=== PATIENT | female | born 1960 | race Caucasian/White ===

== ENCOUNTER 2019-02-10 04:31 | Emergency (ER) | payer OTHER, SELFPAY ==
[2019-02-10 04:32] VITALS: BP 175/94; PULSE 98; RESP 15; TEMP 36.7; O2SAT 97; BMI 51.1
--- NOTE | 2019-02-10 04:58 | CT_ITS ---
We are attempting to reach an attending provider to discuss findings. An addendum with communication details will be sent when the communication is complete. STUDY: CT ABDOMEN AND PELVIS WITH CONTRAST REASON FOR EXAM: Female, 58 years old. Vaginal bleeding. Blood clots. RADIATION DOSAGE (If Supplied By Facility): CTDIvol = ( 17.07 ) mGy, DLP = ( 1379.28 ) mGycm TECHNIQUE: Transaxial images were obtained from the dome of the diaphragm to the symphysis pubis without oral contrast. 100 IV/Oral Isovue 300 was administered. Sagittal and coronal images were reconstructed. Individualized dose optimization techniques were used for this CT. COMPARISON: None. FINDINGS: Lung bases: Unremarkable. Heart: Mild cardiomegaly. Liver: Mild hepatic steatosis. No focal hepatic lesions. Portal vein patent. Gallbladder/biliary ducts: Unremarkable. Pancreas: Unremarkable. Spleen: Unremarkable. Adrenal glands: Unremarkable. Kidneys/ureters/bladder: Unremarkable. Uterus/adnexa: Markedly heterogeneous appearance of the uterus and right adnexal region. Markedly expanded endometrial canal measuring up to 6.2 cm x 7 cm (axial image 86 series 2). Uterus measures up to 14 cm x 12 cm x 17 cm. Poor delineation of the right adnexa from the uterus. Mild inflammatory changes surround the uterus and right adnexal region. Large bowel/small bowel: Contrast reaches the rectum. Uncomplicated large bowel containing ventral hernia (axial image 85 series 2). No perforation. No obstruction. No pneumatosis. Appendix: No signs of appendicitis. Gastroesophageal junction/stomach: Unremarkable. Retroperitoneum/lymph nodes: No intra-abdominal free air. No ascites. Right pelvic sidewall lymph nodes measuring up to 1.7 cm x 0.8 cm (axial image 99 series 2). Vascular: Unremarkable. Osseous structures: Degenerative changes. No acute process. Subcutaneous/soft tissues: Uncomplicated large bowel containing ventral hernia. Hernia neck measures approximately 4.2 cm. No acute process. 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 Given clinical history active intratumoral bleeding/hemorrhage likely. Alternative consideration for infection less likely. ASSISTANT FRONT DESK MANAGER consultation, HTH and contrast-enhanced pelvic MRI recommended for further assessment. Small right pelvic sidewall lymph nodes Additional nonemergent findings, as above Electronically Signed: Bob Otero DO at 8:22 EDT Tel , Service support ,
--- NOTE | 2019-02-10 04:59 | ED.VISSUMM ---
- ER Visit Summary Date of Service: 02/10/19 Chief Complaint: Vaginal bleeding History of Present Illness: The patient is a 58 F who presents with vaginal bleeding that began this morning approximately 1-1/2 hours prior to arrival. Patient states this began rather suddenly. Patient states it is heavy bleeding with clots. Patient denies any pain. Patient denies any dysuria. Patient denies any nausea or vomiting. Patient states she did have some back pain and she rubbed her back. Patient states this is when she noticed the bleeding starting. states they are getting ready to go on vacation to the [facility] today and wanted to get checked out before they left. Physical Examination: Vital signs are stable. Patient is afebrile. Patient is in no acute distress. Oral mucosa is pink and moist. Neck is supple. Trachea is midline. There is no JVD noted. Heart was regular rate and rhythm. Lungs are clear and equal bilaterally. Abdomen is soft. Bowel sounds are normal. There is a ventral hernia noted. There is no tenderness over this hernia. Cranial nerves II through XII are intact. There are no focal motor or sensory deficits noted. Test Results: CBC was normal. INR is 1.0. Metabolic profile is pending. Urinalysis shows occult blood of 250 with 50-[address] scan of the abdomen pelvis was obtained and is pending. Emergency Department Course and Treatment: Patient was given IV fluids. Patient is resting comfortably on reevaluation. Disposition: Care of the patient was turned over to the oncoming physician pending CT results. Impression: Vaginal bleeding This note was generated with [employer] dictation software. It may contain incorrect words, spelling, and punctuation that were not noted in review of the chart prior to signing ED Disposition - Plan for ED Patient: Referrals: Ignacio Ferraro DO [Primary Care Provider] -
[2019-02-10] MEDS: 0.9% Normal Saline 1,000 ML 1000 ML IV (05:15)
[2019-02-10 05:27] LABS: Absolute Neutrophil Count 2.8 X10^3/uL (2.0-7.7); Basophil# 0.05 X10^3/uL; Eosinophil# 0.19 X10^3/uL; Eosinophils% 3.7 % (0-5); Hematocrit 43.4 % (37-47); Hemoglobin 14.1 g/dL (12.0-15.0); Mean Corp Hgb Conc 32.5 g/dL (32-36); Mean Corpuscular Hgb 29.4 pg (27.0-32.0); Mean Corpuscular Volume 90.6 fL (81-99); Mean Platelet Vol. 10.2 fl (6.2-12.0); Monocyte# 0.34 X10^3/uL; Monocyte% 6.6 % (0-10); NRBC Flagged by Analyzer 0 % (0-5); Neutrophil # 2.75 X10^3/uL (2.7-7.7); Neutrophil % 53.3 % (47-70); Platelet Count 283 K/mm3 (150-450); RBC Distribution Width CV 13.4 % (11.6-14.6); RBC Distribution Width SD 44.6 fl (35.1-43.9); Red Blood Count 4.79 M/mm3 (4.2-5.4); White Blood Count 5.2 K/mm3 (4.4-11.0)
[2019-02-10 05:37] LABS: Internal QC Validated? YES +Cl - CLEAR BKGD; Pregnancy, Serum, hCG Quali. NEGATIVE Negative
[2019-02-10 05:42] LABS: Bacteria 0 SEEN /hpf (None Seen); Mucous, Urine 0 SEEN /hpf (<or=2+); Squamous Epithelial Cells - UA 0 SEEN /hpf (5-10); White Blood Cells 0 SEEN /hpf (0-5)
[2019-02-10 05:43] LABS: Glucose, Dipstick Normal (Normal); Ketone-Dipstick Negative (Negative); Leukocyte Esterase-Dipstick Negative /ul (Negative); Nitrite-Dipstick Negative (Negative); Occult Blood-Urine 250 /ul (Negative); Protein-Dipstick 30 mg/dl (Negative); Urine Bilirubin Dipstick Negative (Negative); Urine Clarity Sl. Cloudy (Clear); Urine Urobilinogen Normal (Normal); Urine pH 6.5 (5.0 - 8.0)
[2019-02-10 05:49] LABS: Color, Urine SEE COMMENT BELOW (Yellow)
[2019-02-10 06:05] LABS: Red Blood Cells-Urine 50-100 SEEN /hpf (0-5)
[2019-02-10 06:46] LABS: Prothrombin Time (Protime)PT. 13.1 SECONDS (11.7-14.9)
[2019-02-10 06:47] LABS: Partial Thromboplast Time 29.5 Seconds (24.1-36.2)
[2019-02-10 07:22] LABS: ALB/GLOB Ratio 0.9 RATIO (0.9-2.4); AST(SGOT) 17 U/L (15-37); Alanine Aminotransfer ALT/SGPT 32 U/L (13-56); Albumin, Serum 3.3 g/dL (3.2-5.0); Alkaline Phosphatase 82 U/L (45-117); Anion Gap 6 (5-15); BUN 17 mg/dL (7-18); BUN/Creat Ratio 21.9 RATIO (10-20); Calcium,Total 8.9 mg/dL (8.5-10.1); Chloride 111 mmol/L (98-107); Creatinine, Serum 0.78 mg/dL (0.55-1.02); EST Glomerular Filtration Rate 81 mL/min (>60); Est Glom Filt Rate - Afr Amer 98 mL/min (>60); Estimated Creatinine Clearance 59.32 ml/min; Globulin 3.6 g/dL (2.2-4.2); Glucose 101 mg/dL (74-106); Potassium 4.2 mmol/L (3.5-5.1); Protein, Total 6.9 g/dL (6.4-8.2); Sodium Level 145 mmol/L (136-145)
--- NOTE | 2019-02-10 09:00 | ED.DEP ---
ED Disposition - Plan for ED Patient: Disposition: Home or Assisted Living Instructions: Cancer of the Uterus Referrals: Ignacio Ferraro DO [Primary Care Provider] - Renato Shirley MD [STAFF PHYSICIAN] - (today at 1400 hours (2 pm) - I would recommend showing up at least 15 minutes prior to your scheduled appointment time.)
[2019-02-10 09:26] VITALS: BP 173/90; PULSE 82; RESP 18; O2SAT 97
== END 2019-02-10 09:27 | disposition home or self-care (01) ==
PROVIDERS: Emergency Medicine; Emergency Provider Emergency Medicine; Family Provider Family Medicine; PCP Family Medicine
DX: C55 Malignant neoplasm of uterus, part unspecified (principal); N93.9 Abnormal uterine and vaginal bleeding, unspecified; E66.9 Obesity, unspecified
CPT/HCPCS: 36415; 74177; 80053; 81001; 84703; 85025; 85610; 85730; 96360; 99283; J7030; Q9967; A4216

== ENCOUNTER → 2019-02-10 | Outpatient (CLI) | payer OTHER, SELFPAY ==
[2019-02-10 04:32] VITALS: BMI 51.1
--- NOTE | 2019-02-10 15:50 | EMB_PTH ---
PATIENT: JULIUS SANTOS LOC: [facility] U#:[id number] AGE/SX: 58/F ROOM: RE02/10/[address]: Dr. Renato Shirley MD : 1960 BED: DIS: 02/10/2019 SPEC #: [id number] RECD: 02/10/19 17:36 STATUS: BORIS REQ #: [id number] ALICIA: 02/10/19 15:[address]: Renato Shirley DEPT: SURGICAL PATHOLOGY RECD BY: Chavo Ramon ENTERED: 02/11/19 14:15 SP TYPE: ENDOM BX/C OTHR DR: Dr. Ignacio Ferraro DO Tissues: Endometrium, NOS Procedures: Surgery Specimen Level IV HEADER OPERATION: EMBX PRE-OP DIAGNOSIS: N95.0 TISSUE SUBMITTED: Endometrium MICROSCOPIC DIAGNOSIS Endometrium, biopsy: Organizing blood clots. AM:sp 02/12/19 COMMENT Endometrium is not represented in the biopsy. Clinical correlation is suggested. MICROSCOPIC DESCRIPTION Slides are reviewed. GROSS DESCRIPTION Received is one container labeled with the patient name and designated EM biopsy. The specimen consists of multiple fragments of hemorrhagic soft tissue mixed with blood clot that in aggregate measure 5 x 3 x 0.3 cm. The entire specimen is submitted in two cassettes. /SJ:sp 02/11/19 TC: 5 [facility]: [id number]
== END | disposition home or self-care (01) ==
LOC: LABSPEC 02-11 08:26
PROVIDERS: Family Provider Family Medicine; PCP Family Medicine; Referring Provider Obstetrics & Gynecology; Visit Provider Obstetrics & Gynecology
DX: N95.0 Postmenopausal bleeding (principal)
CPT/HCPCS: 88305

== ENCOUNTER 2019-02-28 08:28 | Day surgery (SDC) | payer SELFPAY, OTHER ==
[2019-02-26 12:52] LABS: Hematocrit 41.1 % (37-47); Hemoglobin 13.1 g/dL (12.0-15.0); Mean Corp Hgb Conc 31.9 g/dL (32-36); Mean Corpuscular Volume 91.1 fL (81-99); Mean Platelet Vol. 9.9 fl (6.2-12.0); Platelet Count 336 K/mm3 (150-450); RBC Distribution Width CV 13.6 % (11.6-14.6); RBC Distribution Width SD 45.6 fl (35.1-43.9); Red Blood Count 4.51 M/mm3 (4.2-5.4); White Blood Count 6.6 K/mm3 (4.4-11.0)
[2019-02-26 12:59] LABS: Partial Thromboplast Time 27.5 Seconds (24.1-36.2); Prothrombin Time (Protime)PT. 13.3 SECONDS (11.7-14.9)
[2019-02-26 13:14] LABS: ALB/GLOB Ratio 0.8 RATIO (0.9-2.4); AST(SGOT) 13 U/L (15-37); Alanine Aminotransfer ALT/SGPT 23 U/L (13-56); Albumin, Serum 3.2 g/dL (3.2-5.0); Alkaline Phosphatase 65 U/L (45-117); Anion Gap 5 (5-15); BUN 14 mg/dL (7-18); BUN/Creat Ratio 15.4 RATIO (10-20); Calcium,Total 8.5 mg/dL (8.5-10.1); Chloride 109 mmol/L (98-107); Creatinine, Serum 0.91 mg/dL (0.55-1.02); EST Glomerular Filtration Rate 67 mL/min (>60); Est Glom Filt Rate - Afr Amer 81 mL/min (>60); Glucose 89 mg/dL (74-106); Potassium 4.2 mmol/L (3.5-5.1); Protein, Total 7.2 g/dL (6.4-8.2); Sodium Level 140 mmol/L (136-145)
[2019-02-26 13:23] LABS: Hemoglobin A1c 4.9 % (4.2-6.3)
--- NOTE | 2019-02-27 21:29 | HP.PCM_ITS ---
History and Physical Date of Admission: 02/28/19 Surgical History and Physical Piper Tiwari, a 58 year old female 7 0 2 0 7, presents for D and C and hysteroscopy on 02/28/19 at 12:00. -- Enlarged Uterus; Heavy DIRECT SALES CONSULTANT Bleeding -- 58 y.o. G 9 P 7 post-menopausal non-smoker reports a sudden on-set of heavy vaginal bleeding. Adds it continues from light to heavy in spurts. Denies cramping or other concerns at this time. It started sudden morning and has been present. It occurs all the time. It is located in the vagina. Piper characterizes it to be non-radiating. Piper characterizes the quality Heavy bleeding. Severity is moderate and very concerned; Additional comments are: CT scan showed enlarged uterus; u/s in office showed same and unable to determine if fibroids present; EMBx inconclusive. MEDICATIONS HISTORY: Patient is also takin. telmisartan 40 mg tablet, One pill by mouth once a day ALLERGIES: No Known Allergies Infections - Chicken pox, Mumps and Measles Illnesses - no serious past illnesses Accidents - None Hospitalizations - see surgery Review of Systems: GENERAL - Denies fever, or chills SKIN - Denies skin changes EYES - Denies visual changes EARS - Denies difficulty hearing NOSE - Denies nasal congestion or bleeding MOUTH - Denies sore throat or difficulty swallowing NECK - Denies pain or swelling RESPIRATORY - Denies shortness of breath or wheezing CARDIOVASCULAR - Denies palpitations or chest pain GASTROINTESTINAL - Denies nausea, vomiting, diarrhea, constipation GENITOURINARY - Denies dysuria, frequency of urination, incontinence of urine MUSCULOSKELETAL - Denies joint or muscle pain NEUROLOGICAL - Denies localized numbness or weakness PSYCHIATRIC - Denies depression or anxiety ENDOCRINE - Denies heat or cold intolerance, weight loss or gain HEMATO-IMMUNOLOGIC - Denies excessive bleeding with cuts SOCIAL HISTORY: Alcohol Use - None Smoking - Never Diet - no special diet Lifestyle - moderate stress lifestyle and Exercise - active work Seat Belt Use - occasional Employer - [employer]visor [employer] Illicit Drug Use - None Sexual Activity - Spouse-Sig Other Name - Anton Spouse-Sig 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 01/01/1984 2. 01/08/1986 3. 07/25/1989 4. 2001(R) Ankle Surgery PHYSICAL EXAM BP- 170/92 Sitting, Right arm, large cuff Weight- 261.24747 lbs Height- 59 inch BMI:52.83 CONSTITUTIONAL - NAD, well nourished, and well developed and obese SKIN - No rash, lesions, or ulcers HEENT - Normocephalic, PERRLA, EOMI NECK - No nodes, no nuchal rigidity and thyroid normal size and texture LYMPH NODES - Palpation of lymph nodes in neck and groins within normal limits LUNGS - CTA x2 without wheezes, crackles or rales CARDIAC - Regular rate and rhythm without rubs, murmurs, or gallops ABDOMEN - Without hepatosplenomegaly, distention, masses, rebound, or guarding; normal bowel sounds; no hernias and 10 cm umbilical hernia (present for years) EXTREMITIES - No edema or calf tenderness NEUROLOGICAL - Cranial nerves II-XII grossly intact PSYCHIATRIC - A and O to time, place, person, mood and affect External Genital Vagina - non-tender without lesions Urethra/Urethral Meatus - non-tender Bladder - non-tender Vagina - vaginal rahman are pink and moist without loss of rugae and no evidence of atropy Cervix - without cervical motion tenderness and has normal size and features without evident lesions Uterus - enlarged uterus 15 wks and greater and exam compromised by habitus Adnexa - clear without masses or tenderness and exam limited by habitus ASSESSMENT/PLAN: 1. Enlarged Uterus and Postmenopausal Bleeding Since EMBx results inconclusive will need to proceed with D and C and H/S. Discussed RBAs and all questions answered.
[2019-02-28] VITALS (11 sets, daily range): BP systolic 83–130; BP diastolic 46–80; PULSE 57–88; RESP 16; TEMP 36.1–36.3; O2SAT 92–99; BMI 51.7
[2019-02-28] MEDS: Lactated Ringers 1,000 ML 100 ML IV ×2 (08:59→11:03)
--- NOTE | 2019-02-28 10:00 | EMB_PTH ---
PATIENT: JULIUS SANTOS LOC: [facility] [place] U#:[id number] AGE/SX: 58/F ROOM: RE02/28/[address]: Dr. Renato Shirley MD : 1960 BED: DIS: 02/28/2019 SPEC #: [id number] RECD: 02/28/19 12:01 STATUS: BORIS CHANTAL #: [id number] ALICIA: 02/28/19 10:[address]: Renato Shirley DEPT: SURGICAL PATHOLOGY RECD BY: Catalino Salvador ENTERED: 02/28/19 12:37 SP TYPE: ENDOM BX/C RAHUL DR: Dr. Ignacio Ferraro DO Tissues: A - Endometrium, NOS B - Endocervical Procedures: Surgery Specimen Level IV HEADER OPERATION: Hysteroscopy, dilation and curettage PRE-OP DIAGNOSIS: Postmenopausal bleeding TISSUE SUBMITTED: A - Endometrial curettings, B - Endocervical curettings MICROSCOPIC DIAGNOSIS A. Endometrium, curettings: Fragments of endocervix with nabothian cysts. Rare fragments of benign superficial squamous mucosa. Rare strips of benign superficial endometrium. See comment. B. Endocervix, curettings: Fragments of benign endocervix. Scant fragments of benign squamous mucosa. AM:damon 03/03/19 COMMENT A. The specimen probably represents fragments of an endocervical/lower uterine segment polyp. Clinical correlation is suggested. MICROSCOPIC DESCRIPTION Slides are reviewed. GROSS DESCRIPTION A - Received in fixative is one container labeled with the patient's name and designated endometrial curettings. The specimen consists of a fragment of tran-pink polyp measuring 1.5 x 1 x 0.4 cm. Also present in the container are multiple fragments of tran-pink soft tissue mixed with blood clot measuring in aggregate 2 x 0.5 x 0.2 cm. The polyp is bisected. The entire specimen is submitted in one cassette. B - Received in fixative is one container labeled with the patient's name and designated endocervical curettings. The specimen consists of multiple fragments of hemorrhagic mucoid tissue that in aggregate measure 2 x 1.5 x <0.1 cm. The specimen is totally submitted in one cassette. / BROCK:damon 02/28/19 TC:5 CPT: 64271 x2
--- NOTE | 2019-02-28 10:14 | PCM.OPRPT ---
Report of Operation Date of Procedure: 02/28/19 Pre-Operative Diagnosis: Postmenopausal Bleeding Post-Operative Diagnosis: Postmenopausal Bleeding And Large Submucous Fibroids Surgery/Procedure Performed:: Diagnostic Hysteroscopy, Fractional Dilation and Curettage Description of Surgical Findings:: 15 cm endometrial cavity with a large submucous fibroid and some endometrial polyps. Cervix is extremely high in vagina which would make any vaginal procedure technically not feasible. Large 10 cm ventral hernia. Type of Anesthesia:: MAC Anesthesiologist: Al Sandra Specimen's removed: Endometrial and endocervical curettings Estimated Blood Loss (mL): 100 cc Fluids Replaced: Crystalloid Description of Procedure: Surgeon: Renato Shirley MD, FACOG Indications: This is a 58 year old patient who has the above diagnosis. The patient has been counseled regarding the risk and indications of this procedure including the possibility of bleeding, infection, and injury to surrounding structures such as bowel bladder. All questions were answered and we consider the patient well-informed. Procedure: The patient was taken to the operating room where after induction of general anesthesia, she was placed in the dorsolithotomy position and prepped and draped in the usual sterile fashion. After placing a speculum, the anterior cervix was grasped with the tenaculum and dilated to about 4-5 mm. Endocervical curettings were obtained. A 3 mm hysteroscope was placed in the uterus of the above findings were noted. Cervix was dilated to about 7-8 mm and uterus was gently curetted removing as much content as possible. In the course of the procedure approximately 200 cc of saline distending media was used and virtually all of this was recovered. Patient tolerated procedure well was taken to recovery room in satisfactory condition sponge instrument and needle counts were all reportedly correct. Estimated blood loss for the case was 30 cc. Specimens to pathology was endometrial and endocervical curettings Complications: None Grafts/Implants Used: None - Complications None - Admit VTE Documentation VTE Present on Admission: Yes VTE Mechan Device Prophylaxis: SCD's
--- NOTE | 2019-02-28 10:18 | DCINST_ITS ---
Discharge Diet: No Restrictions Discharge Activity: Return to Normal Activity, May Shower, May Take a Tub Bath Call your doctor if you observe: Fever of 101 or Higher, Inability to urinate, Inability to have a bowel movement, Using more than one pad per hour Allergies/Adverse Reactions: Allergies No Known Allergies Allergy (Verified 02/28/19 08:39) Medications to take at Discharge Telmisartan [Micardis] 40 mg PO DAILY 02/27/19 Primary Care Physician: Ignacio Ferraro DO [Primary Care Provider] - Test Results: Test results from this visit will be discussed in further detail at your follow- up appointment, if applicable. Please Follow Up With: Renato Shirley MD When: 2 to 3 weeks
[2019-02-28] MEDS: Lubricating Jelly 60 GM Tube 30 GM TOPICAL (10:50)
== END 2019-02-28 12:50 | disposition home or self-care (01) ==
LOC: SDC 08:32 → AC 08:33
PROVIDERS: Family Provider Family Medicine; PCP Family Medicine; Referring Provider Obstetrics & Gynecology; Visit Provider Obstetrics & Gynecology
PROC: 0UDB8ZZ Extraction of Endometrium, Via Natural or Artificial Opening Endoscopic (ICD-10-PCS; CPT 58558; principal; 2019-02-28 09:50)
DX: N88.8 Other specified noninflammatory disorders of cervix uteri (principal); D25.0 Submucous leiomyoma of uterus; K43.9 Ventral hernia without obstruction or gangrene; E66.01 Morbid (severe) obesity due to excess calories; Z68.43 Body mass index [BMI] 50.0-59.9, adult; I10 Essential (primary) hypertension; Z79.899 Other long term (current) drug therapy
CPT/HCPCS: 58558; 36415; 80053; 83036; 85027; 85610; 85730; 86850; 86900; 86901; 88305; J7120; J2405

== ENCOUNTER 2019-04-21 08:18 | Inpatient (IN) | payer SELFPAY, OTHER ==
[2019-02-28 08:48] VITALS: BMI 51.7
[2019-04-02 09:10] VITALS: BMI 51.7
--- NOTE | 2019-04-02 09:10 | HP_ITS ---
Intake Intake Visit Reasons: Open Ventral Hernia w/o mesh SX 04/21 with Fern Allergies No Known Allergies Allergy (Verified 02/28/19 08:39) [facility] Medical History (Updated 03/31/19 @ 08:42 by Isis Villatoro) Hypertension (Chronic) Surgical History (Updated 03/31/19 @ 08:42 by Isis Villatoro) History of (Acute) Family History (Updated 03/31/19 @ 08:43 by Isis Villatoro) Mother Hypertension CVA (cerebral vascular accident) Sister Hypertension Social History (Updated 04/02/19 @ 09:10 by Salvador Connors MD) Smoking Status: Never smoker second hand exposure: No alcohol intake: never substance use type: does not use caffeine: Yes what type of physical activity do you participate in: none frequency: does not exercise HPI HPI HPI: JULIUS SANTOS, is a 58 F who presents to the office today for HPI HPI Surgical H&P: Yes HPI: JULIUS SANTOS, is a 58 F who presents to the office today for preoperative evaluation for ventral hernia repair. Patient is having a hysterectomy by Dr. Shirley and has a large ventral hernia that he would like assistance with. ROS General General: No weight change or fatigue Cardio Cardiovascular: No murmur, pacemaker, heart disease, atrial fibrillation, high blood pressure, heart attack, heart stent, palpitations, shortness of breat with exertion or chest pain Psych Psychiatric: No depression or anxiety Resp Respiratory: No shortness of breath, No sleep apnea, No cough, No COPD, No asthma, No emphysema, No wheezing Gastro Gastrointestinal: No abdominal pain, No nausea or vomiting, No diarrhea, No constipation, No blood in stool, No acid reflux, No hemorrhoids, No ulcers, No gallbladder problem, No black,tarry stools Berry Hematologic: No blood thinners Exam Const General: cooperative Orientation: alert, oriented x3 Resp Effort & Inspection: normal respiratory effort Auscultation: clear to auscultation bilaterally Cardio Rate: regular rate Rhythm: regular rhythm Heart Sounds: no murmurs GI Inspection: non-distended Palpation: soft, hernia umbilical (Incarcerated), nontender Assessment & Plan Problems 1. Incarcerated umbilical hernia K42.0 Plan The patient has a large incarcerated umbilical hernia. I advised Dr. Shirley that we perform an open approach. Dr. Shirley agrees as the uterus is very large. We will make a lower midline incision including the hernia and reduce the contents. We will then closed the fascia primarily with suture due to the clean contaminated case. I advised the patient of the risks of the procedure such as bleeding, infection, recurrence of hernia, injury to underlying bowel. The patient understands as well to proceed. Salvador Connors MD Pager: [facility] [address] [place] [address], [address] [place] [address] Office: Coding Level of Care Code Off vis,new,level 3 Diagnoses Incarcerated umbilical hernia K42.0 04/02/19 0910 <Electronically signed by Salvador underwood MD> Date _ Salvador Connors MD I have re-examined the patient. There are no clinical changes since date of exam.
--- NOTE | 2019-04-16 10:35 | EKG12_ITS ---
Test Reason : PRE OP Blood Pressure : / mmHG Vent. Rate : 081 BPM Atrial Rate : 081 BPM P-R Int : 158 ms QRS Dur : 084 ms QT Int : 362 ms P-R-T Axes : 052 011 031 degrees QTc Int : 420 ms Normal sinus rhythm with sinus arrhythmia Normal ECG Confirmed by NEGRITA SHETH ([id number]), story editor CHERYL LOPEZ ([id number]) on 04/21/2019 9:14:28 AM Referred By: Renato Shirley Confirmed By:NEGRITA SHETH
[2019-04-16 11:35] LABS: Hematocrit 44.4 % (37-47); Mean Corp Hgb Conc 31.5 g/dL (32-36); Mean Corpuscular Hgb 28.3 pg (27.0-32.0); Mean Corpuscular Volume 89.9 fL (81-99); Mean Platelet Vol. 10.4 fl (6.2-12.0); Platelet Count 361 K/mm3 (150-450); RBC Distribution Width CV 12.9 % (11.6-14.6); RBC Distribution Width SD 42.4 fl (35.1-43.9); Red Blood Count 4.94 M/mm3 (4.2-5.4); White Blood Count 6.1 K/mm3 (4.4-11.0)
[2019-04-16 11:44] LABS: International Normalized Ratio 0.9; Prothrombin Time (Protime)PT. 12.4 SECONDS (11.7-14.9)
[2019-04-16 11:45] LABS: Partial Thromboplast Time 29.7 Seconds (24.1-36.2)
[2019-04-16 12:07] LABS: Creatinine, Serum 0.89 mg/dL (0.55-1.02); EST Glomerular Filtration Rate 69 mL/min (>60); Est Glom Filt Rate - Afr Amer 84 mL/min (>60)
--- NOTE | 2019-04-20 17:45 | PCM.HP.BLA ---
History and Physical Date of Admission: 04/21/19 Surgical History and Physical Date: 04/20/2019 Name: PIPER SANTOS Age: 58 Date of : 1960 Piper Santos, a 58 year old female 7 0 2 0 7, presents for FRANKY/BSO on April 21, 2019 at 7:30. -- Enlarged Uterus; Heavy MAINTENANCE DEPARTMENT MANAGER Bleeding; Large Uterine Fibroids; Large Ventral Hernia -- Heavy bleeding. Severity is moderate and very concerned. Additional comments are: CT scan showed enlarged uterus; u/s in office showed same and unable to determine if fibroids present but 15 cm uterus and submucous fibroids noted at time of D and C. Has large ventral hernia which Dr. Connors plans to repair at time of this surgery likely without mesh. MEDICATIONS HISTORY: Patient is also takin. telmisartan 40 mg tablet, One pill by mouth once a day ALLERGIES: No Known Allergies Infections - Chicken pox, Mumps and Measles Illnesses - no serious past illnesses Accidents - None Hospitalizations - see surgery Review of Systems: GENERAL - Denies fever, or chills SKIN - Denies skin changes EYES - Denies visual changes EARS - Denies difficulty hearing NOSE - Denies nasal congestion or bleeding MOUTH - Denies sore throat or difficulty swallowing NECK - Denies pain or swelling RESPIRATORY - Denies shortness of breath or wheezing CARDIOVASCULAR - Denies palpitations or chest pain GASTROINTESTINAL - Denies nausea, vomiting, diarrhea, constipation GENITOURINARY - Denies dysuria, frequency of urination, incontinence of urine MUSCULOSKELETAL - Denies joint or muscle pain NEUROLOGICAL - Denies localized numbness or weakness PSYCHIATRIC - Denies depression or anxiety ENDOCRINE - Denies heat or cold intolerance, weight loss or gain HEMATO-IMMUNOLOGIC - Denies excessive bleeding with cuts SOCIAL HISTORY: Alcohol Use - None Smoking - Never Diet - no special diet Lifestyle - moderate stress lifestyle and Exercise - active work Seat Belt Use - occasional 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 01/01/1984 2. 01/08/1986 3. 07/25/1989 4. 2001(R) Ankle Surgery . 02/28/2019 dx hysteroscopy, fractional D and C ; Renato Shirley M.D. PHYSICAL EXAM BP- 152/86 Sitting, Right arm, large cuff Weight- 265.15996 lbs Height- 59 inch BMI:53.64 CONSTITUTIONAL - NAD, well nourished, and well developed and obese SKIN - No rash, lesions, or ulcers HEENT - Normocephalic, PERRLA, EOMI NECK - No nodes, no nuchal rigidity and thyroid normal size and texture LYMPH NODES - Palpation of lymph nodes in neck and groins within normal limits LUNGS - CTA x2 without wheezes, crackles or rales CARDIAC - Regular rate and rhythm without rubs, murmurs, or gallops ABDOMEN - Without hepatosplenomegaly, distention, masses, rebound, or guarding; normal bowel sounds; no hernias and 10 cm umbilical hernia (present for years) EXTREMITIES - No edema or calf tenderness NEUROLOGICAL - Cranial nerves II-XII grossly intact PSYCHIATRIC - A and O to time, place, person, mood and affect External Genitalia Vagina - non-tender without lesions Urethra/Urethral Meatus - non-tender Bladder - non-tender Vagina - vaginal rahman are pink and moist without loss of rugae and no evidence of atropy Cervix - without cervical motion tenderness and has normal size and features without evident lesions Uterus - enlarged uterus 15 wks and greater and exam compromised by habitus Adnexa - clear without massess or tenderness and exam limited by habitus ASSESSMENT/PLAN: 1. Enlarged Uterus and Postmenopausal Bleeding EMBx results inconclusive but D and C Showed benign tissue and submucous fibroid. Discussed options for treatment and plan to proceed with FRANKY/BSO with Ventral Hernia Repair per Dr. Connors. Discussed RBAs and all questions answered.
[2019-04-21] VITALS (10 sets, daily range): BP systolic 82–164; BP diastolic 50–85; PULSE 59–87; RESP 16–18; TEMP 36.4–36.8; O2SAT 98–100; BMI 50.9
[2019-04-21] MEDS: Lactated Ringers 1,000 ML 100 ML IV ×4 (09:19→15:16)
--- NOTE | 2019-04-21 10:30 | HYST_PTH ---
PATIENT: JULIUS SANTOS LOC: MS3 U#:[id number] AGE/SX: 58/F ROOM: MS324 RE04/21/[address]: Dr. Renato Shirley MD : 1960 BED: 1 DIS: 04/24/2019 SPEC #: [id number] RECD: 04/21/19 16:01 STATUS: BORIS RESylwia #: [id number] ALICIA: 04/21/19 10:[address]: Renato Shirley DEPT: SURGICAL PATHOLOGY RECD BY: Chavo Ramon ENTERED: 04/22/19 07:33 SP TYPE: HYSTERECT OTHR DR: MD Dr. Bob Byrd MD Dr. Nolan Byler, DO Tissues: A - Uterus, NOS B - HERNIA Procedures: Surgery Specimen Level II Surgery Specimen Level III Surgery Specimen Level V HEADER OPERATION: Total abdominal hysterectomy, bilateral salpingo-oophorectomy PRE-OP DIAGNOSIS: Enlarging uterus, postmenopausal bleeding TISSUE SUBMITTED: A - Uterus, bilateral fallopian tubes and ovaries, B - Hernia sac and omentum MICROSCOPIC DIAGNOSIS A. Uterus, hysterectomy: Cervix - nabothian cysts and minimal chronic inflammation. Endometrium - proliferative endometrium. Myometrium - leiomyomas and adenomyosis. Right and left fallopian tubes with vascular congestion. Ovary with corpora albicantia. Benign paratubal cyst with hemorrhagic infarction and congestion. B. Hernia sac and omentum, excision: Hernia sac with fibrosis and chronic inflammation. Omentum, biopsy: Mature adipose tissue with vascular congestion and focal fibrosis. See comment. AM:damon 04/23/19 COMMENT B. Minute fragment of unremarkable skin is present. Clinical correlation is suggested. Case has been reviewed in consultation with Dr. Parsons who concurs with the above diagnosis. IDC:[id number] MICROSCOPIC DESCRIPTION Slides are reviewed. GROSS DESCRIPTION A - Received in fixative is one container labeled with the patient's name and designated uterus, bilateral tubes and ovaries. The specimen consists of a hysterectomy specimen consisting of uterus with cervix and possible bilateral fallopian tubes and ovaries in multiple pieces. The uterus with cervix is received in four pieces and weighs in aggregate 1077 gm. One of the detached pieces is consistent with cervix which measures 3.5 x 3.5 x 2 cm. The external os is circular in contour. Only portion of ectocervical mucosa is noted. The endocervical canal measures 2.5 cm in length and the endocervical mucosa is unremarkable. Two large pieces of uterus measure 16 x 15 x 10 cm and 15 x 13 x 9 cm and the third piece measures 7 x 4 x 2.5 cm. A focal area shows serosal surface which appears congested and ragged. Two larger pieces of uterus also shows focal area of hemorrhage. The endometrial cavity measures 7 cm in length and 5 cm in width. The endometrium is congested and hemorrhagic and without any mass lesion and measures <0.1 cm in thickness. Sections of some of the nodular masses reveal soft cut surfaces. One of the pieces possibly consistent with fallopian tube and ovary measures 5 x 5 x 2 cm. An obvious fallopian tube could not be identified. One area consistent with fimbrial end is noted. In this piece, an ovary is noted measuring 3 x 2 x 2 cm. Sections do not reveal any mass lesion. The second piece showing a possible fimbrial end measures 4 x 2 x 0.6 cm. No obvious portion of fallopian tube is noted in this piece. The fimbrial end in this area measures 1.5 x 0.5 x 0.5 cm. Two nodules consistent with possible ovarian cysts are present measuring 1 x 1 x 0.5 cm and 2 x 2 x 2 cm. Sections reveal hemorrhagic cut surfaces. [employer] sections are submitted in 14 cassettes as follows: 1 & 2 - cervix, 3-6 - endomyometrium, 7 - largest nodular mass, 8-11 - smaller nodular masses, 12 - possible one ovary and adjacent fimbrial end and fallopian tube, 13 - possible second fimbrial end and fallopian and smaller congested cyst, possible ovarian cyst, 14 - larger congested cyst, possible ovarian tissue. B - Received in fixative is one container labeled with the patient's name and designated omentum, hernia sac. The specimen consists of a piece of congested membranous tissue consistent with hernia sac measuring 14 x 11 x 0.5 cm. Also present received is a piece of adipose tissue consistent with hematoma measuring 15 x 12 x 3 cm. Sections do not reveal any mass lesion. [employer] sections are submitted in four cassettes as follows: 1 & 2 - omental tissue, 3 & 4 - hernia sac tissue. / BROCK:damon 04/22/19 TC:1 CPT: 58322, 69908, 78075
--- NOTE | 2019-04-21 10:56 | OP.PCM_ITS ---
Report of Operation Date of Procedure: 04/21/19 Pre-Operative Diagnosis: Postmenopausal Bleeding, Large Uterine Fibroid, Large Ventral Hernia Post-Operative Diagnosis: Postmenopausal Bleeding, Large Uterine Fibroid, Large Ventral Hernia Surgery/Procedure Performed:: Total Abdominal Hysterectomy, Bilateral Salpingo- Oophorectomy, Ventral Hernia Repair Description of Surgical Findings:: 20 cm fibroid uterus with normal-appearing right fallopian tube and normal ovaries. Left hydrosalpinx. Extension of uterine fibroids into the right adnexa. Large ventral hernia sewer and cutter finger buff material: Salvador Connors sewer and cutter finger buff material: Denise Cornejo Type of Anesthesia:: General - Endotracheal Anesthesiologist: Osman Osuna Specimen's removed: Uterus, bilateral fallopian tubes and ovaries Drains: Zuluaga to straight drain; ANDREW to bulb Estimated Blood Loss (mL): 1800cc Fluids Replaced: 2600 Crystalloid; 2 units PRBC Description of Procedure: Surgeon: Renato Shirley MD, FACOG Compass Operator: Dr. Salvador Connors; Denise Cornejo Procedure: Total Abdominal Hysterectomy, Bilateral Salpingo-Oophorectomy per [place] Shirley; Ventral Hernia Repair per Dr. Connors (dictated separately) Indications: This is a 38-year-old patient who his been having problems with extremely heavy bleeding and large uterine fibroids. She also has a large ventral hernia. Given this the patient desires that we proceed with the above procedure. She has been counseled regarding the risk and indications of this procedure including the possibility of bleeding, infection, and injury to surrounding structures such as bowel bladder. All questions were answered. Procedure: Patient was taken to the operating room where after induction of general anesthesia she was prepped and draped in the usual sterile fashion. A Zuluaga catheter was placed. The abdomen was entered through a midline incision and peritoneal cavity was entered sharply. This incision extended into the ventral hernia. Ventral hernia sac was isolated per Dr. Connors which is dictated separately. Ester retractor was used when possible. Round ligaments were identified and ligated with 0 Vicryl suture. Progressive bites were taken on either side of the uterine body until it was not possible to progress further because of the large uterine fibroid. This is approximately skilled nursing down the uterus. Bladder flap was developed. At this point the uterus was opened across the fundus and the approximately 10 cm fibroid was shelled out. Progressive bites were continued on either side of the cervix ligating each pedicle with 0 Vicryl suture. Uterus was removed removed from the cervix to allow visualization. The cervical stump was then removed in usual fashion ligating each pedicle with 0 Vicryl suture. Angle sutures were used along with 2 [id number] 0 Vicryl batista ture across the vaginal cuff to close the vaginal cuff. Vaginal cuff and pelvic sidewall pedicles were oversewn where possible to achieve maximal hemostasis. Pelvis was copiously irrigated with saline solution. There remained some oozing from the right retroperitoneal area and it was felt that Surgicel snow product was best suited to help with postoperative hemostasis along with a #10 ANDREW drain which was brought through the skin in the right lower quadrant. At this portion of the procedure the patient fascia was closed per Dr. Connors which is dictated separately along with his skin closure. Patient tolerated the procedure well was taken to recovery room in satisfactory condition; sponge instrument and needle counts were all reportedly correct. Estimated blood loss for the case was 1800 cc. Ancef 2 g IV was given prior to beginning the operative procedure. There were no apparent complications of the surgery. Specimen to pathology was uterus and bilateral fallopian tubes and ovaries along with ventral hernia sac and omentum. Grafts/Implants Used: None - Complications None - Admit VTE Documentation VTE Present on Admission: Yes VTE Mechan Device Prophylaxis: SCD's VTE Pharm Prophylaxis ordered?: Yes
[2019-04-21] MEDS: Dextrose 5%-Lactated Ringers 1,000 ML 150 ML IV (16:42)
--- NOTE | 2019-04-21 18:23 | PCM.OPRPT ---
Problem List (1) Ventral hernia Status: Acute Qualifiers: Obstruction and gangrene presence: without obstruction or gangrene Qualified Code(s): K43.9 - Ventral hernia without obstruction or gangrene Report of Operation Date of Procedure: 04/21/19 Pre-Operative Diagnosis: Incarcerated ventral hernia Post-Operative Diagnosis: Incarcerated ventral hernia Surgery/Procedure Performed:: Incarcerated ventral hernia repair Specimen's removed: Hernia sac and omentum Description of Procedure: The patient was brought back to the operating room and general anesthesia was induced. A Zuluaga catheter was placed. The midline was marked with a marker and a midline incision was made inferior to the umbilicus and deepened to the fascia. The fascia was elevated and incised. A finger sweep was performed. Next using electrocautery the fascia was incised superiorly until the hernia sac was encountered. The hernia sac was bluntly dissected free from the surrounding subcutaneous tissue. Next the fascia was opened until it reached the hernia and the contents were reduced. The hernia sac was inverted and the attachments to the hernia sac were taken down. There was no injury to bowel. There was a small area of omentum which was very indurated and was removed using electrocautery. Next the bowels were reduced into the abdomen and I assisted Dr. Shirley with hysterectomy. Once the hysterectomy was complete the midline fascia was closed with #1 Prolene suture in a running fashion with interrupted #1 Prolene sutures every 1 to 2 cm. The fascia was fully intact at the end of the case. The subcutaneous tissue was irrigated copiously. The area of skin above the hernia sac was very may and did not appear healthy. It appeared to be devascularized. This was resected. The potential space was closed with interrupted 3-0 Vicryl sutures. The skin was closed with interrupted Vicryl 3-0 sutures and chau. Patient tolerated the procedure well. For Dr. Shirley's portion of the case please see his operative note. - Admit VTE Documentation VTE Mechan Device Prophylaxis: SCD's
[2019-04-21] MEDS: oxyCODONE 5 MG Tablet PO (18:32)
[2019-04-21] MEDS: Enoxaparin 30 MG/0.3 ML Syringe SC (18:33)
[2019-04-22] MEDS: oxyCODONE 5 MG Tablet PO ×4 (00:03→22:00)
[2019-04-22] MEDS: Dextrose 5%-Lactated Ringers 1,000 ML 150 ML IV ×3 (00:06→15:11)
[2019-04-22 02:15] VITALS: BP 118/59; PULSE 92; RESP 18; TEMP 37.2; O2SAT 95
[2019-04-22 05:29] LABS: Hematocrit 38.4 % (37-47); Hemoglobin 12.2 g/dL (12.0-15.0); Mean Corp Hgb Conc 31.8 g/dL (32-36); Mean Corpuscular Hgb 29.3 pg (27.0-32.0); Mean Corpuscular Volume 92.1 fL (81-99); Mean Platelet Vol. 9.9 fl (6.2-12.0); Platelet Count 319 K/mm3 (150-450); RBC Distribution Width CV 13.5 % (11.6-14.6); RBC Distribution Width SD 45.5 fl (35.1-43.9); Red Blood Count 4.17 M/mm3 (4.2-5.4)
[2019-04-22 05:53] LABS: Creatinine, Serum 1.13 mg/dL (0.55-1.02); EST Glomerular Filtration Rate 53 mL/min (>60); Est Glom Filt Rate - Afr Amer 64 mL/min (>60); Estimated Creatinine Clearance 38.98 ml/min
--- NOTE | 2019-04-22 07:54 | PN.SURG_ITS ---
Patient Problems: Active and Suspected Problems (Last Updated 03/31/19 @ 08:42 by Isis Villatoro) Ventral hernia (Acute) Subjective: Patient says that she is still very sore. She is not passing any flatus. No nausea or vomiting. - Physical Exam Vitals/I&O's: Vital Signs Temp Pulse Resp BP Pulse Ox 98.9 F 92 18 118/59 L 95 04/22/19 02:15 04/22/19 02:15 04/22/19 02:15 04/22/19 02:15 04/22/19 02:15 Oxygen Flow Rate (L/min) 1 Oxygen Delivery Method Nasal Cannula Weight: 260 lb 12.909 oz Body Mass Index (BMI) 50.9 Intake and Output for Last 24 Hours 04/20/19 04/21/19 04/22/19 23:59 23:59 23:59 Intake Total 5270 / 5270 1000 / 1000 Output Total 380 / 785 645 / 645 Balance 4890 / 4485 355 / 355 General: Alert, Oriented x3 Neck: No JVD Lungs: Normal air movement Cardiovascular: Regular rate, Regular Rhythm Abdomen: Soft, Non-Distended, Tender, - - Incision clean dry and intact Extremities: No clubbing Musculoskeletal: No Muscle Wasting Neurological: Cranial nerves II-XII grossly intact Psych/Mental Status: Normal Affect Laboratory Results 04/16/19 10:22: Blood Type A POSITIVE, Antibody Screen NEGATIVE, Crossmatch See Detail 04/21/19 18:18: Hgb 14.0 04/22/19 05:15: WBC 11.0, RBC 4.17 L, Hgb 12.2, Hct 38.4, MCV 92.1, MCH 29.3, MCHC 31.8 L, RDW Std Deviation 45.5 H, RDW Coeff of Robert 13.5, Plt Count 319, MPV 9.9 04/22/19 05:15: Creatinine 1.13 H, Estim Creat Clear Calc 38.98, Est GFR (MDRD) Af Amer 64, Est GFR (MDRD) Non-Af 53 L Current Medications Acetaminophen (Tylenol) 1,000 mg PO Q8H PRN PRN PRN Reason: Pain Score 1-3/10 or Fever Docusate Sodium (Colace) 100 mg PO BID PRN PRN PRN Reason: Constipation Hydromorphone HCl (Dilaudid Inj) 0.5 - 1.5 mg IV Q3H PRN PRN PRN Reason: Pain Score 4-10/10 Dextrose/Lactated Ringer's () 1,000 mls @ 150 mls/hr IV .Q6H40M [facility] Last Admin: 04/22/19 06:54 Dose: 150 mls/hr Documented by: Ondansetron HCl (Zofran) 4 mg IV Q4H PRN PRN PRN Reason: NAUSEA Oxycodone HCl (Oxyir) 5 - 10 mg PO Q4H PRN PRN PRN Reason: Pain Score 4-10/10 Last Admin: 04/22/19 00:03 Dose: 10 mg Documented by: Simethicone (Mylicon) 80 mg PO [facility] Last Admin: 04/21/19 21:27 Dose: 80 mg Documented by: Sodium Chloride () 10 - 40 ml IV UD PRN PRN Reason: SALINE FLUSH Medical Necessity - Tobacco Use Smoking Status: Never smoker Tobacco Use: Non-smoker Assessment/Plan All Active Problems (Last Updated 03/31/19 @ 08:42 by Isis Villatoro) Ventral hernia (Acute) History of (Acute) 58-year-old female status post ventral hernia repair and hysterectomy 1. The patient reports that she is doing well but she is still very sore. She is not having any nausea or vomiting and she is not passing any flatus. I recommend continue clear liquids until she starts having bowel function. Her diet can be advanced at that point. 2. Hemoglobin stable. Salvador Connors MD Pager: [facility] [address] [place] [address], [address] [place] [address] Office:
--- NOTE | 2019-04-22 09:02 | PCM.PN.OB ---
Patient Problems: Active and Suspected Problems (Last Updated 03/31/19 @ 08:42 by Isis Villatoro) Ventral hernia (Acute) Subjective: Patient without complaints but she is a bit lethargic. Some soreness reported especially when she moves very much. Denies flatus. Some burping. Minimal vaginal bleeding. - Physical Exam Vitals/I&O's: Vital Signs Temp Pulse Resp BP Pulse Ox 98.9 F 92 18 118/59 L 95 04/22/19 02:15 04/22/19 02:15 04/22/19 02:15 04/22/19 02:15 04/22/19 02:15 Oxygen Flow Rate (L/min) 1 Oxygen Delivery Method Nasal Cannula Weight: 260 lb 12.909 oz Body Mass Index (BMI) 50.9 Intake and Output for Last 24 Hours 04/20/19 04/21/19 04/22/19 23:59 23:59 23:59 Intake Total 5270 / 5270 1000 / 1000 Output Total 380 / 785 645 / 645 Balance 4890 / 4485 355 / 355 Comment: Wound dressing is clean and dry. CBC and creatinine okay. ANDREW drain 70cc. Laboratory Results 04/16/19 10:22: Blood Type A POSITIVE, Antibody Screen NEGATIVE, Crossmatch See Detail 04/21/19 18:18: Hgb 14.0 04/22/19 05:15: WBC 11.0, RBC 4.17 L, Hgb 12.2, Hct 38.4, MCV 92.1, MCH 29.3, MCHC 31.8 L, RDW Std Deviation 45.5 H, RDW Coeff of Robert 13.5, Plt Count 319, MPV 9.9 04/22/19 05:15: Creatinine 1.13 H, Estim Creat Clear Calc 38.98, Est GFR (MDRD) Af Amer 64, Est GFR (MDRD) Non-Af 53 L Current Medications Acetaminophen (Tylenol) 1,000 mg PO Q8H PRN PRN PRN Reason: Pain Score 1-3/10 or Fever Docusate Sodium (Colace) 100 mg PO BID PRN PRN PRN Reason: Constipation Hydromorphone HCl (Dilaudid Inj) 0.5 - 1.5 mg IV Q3H PRN PRN PRN Reason: Pain Score 4-10/10 Dextrose/Lactated Ringer's () 1,000 mls @ 150 mls/hr IV .Q6H40M [facility] Last Admin: 04/22/19 06:54 Dose: 150 mls/hr Documented by: Ketorolac Tromethamine (Toradol) 15 mg IV Q6 [facility] Stop: 04/27/19 08:59 Non-Formulary Medication (Telmisartan [Micardis]) 40 mg PO DAILY [facility] Ondansetron HCl (Zofran) 4 mg IV Q4H PRN PRN PRN Reason: NAUSEA Oxycodone HCl (Oxyir) 5 - 10 mg PO Q4H PRN PRN PRN Reason: Pain Score 4-1010 Last Admin: 04/22/19 00:03 Dose: 10 mg Documented by: Simethicone (Mylicon) 80 mg PO [facility] Last Admin: 04/21/19 21:27 Dose: 80 mg Documented by: Sodium Chloride () 10 - 40 ml IV UD PRN PRN Reason: SALINE FLUSH Medical Necessity - Tobacco Use Smoking Status: Never smoker Tobacco Use: Non-smoker Assessment/Plan All Active Problems (Last Updated 03/31/19 @ 08:42 by Isis Villatoro) Ventral hernia (Acute) History of (Acute) Doing well postoperative day #1 status post total abdominal hysterectomy bilateral salpingo-oophorectomy and ventral hernia repair. Hemoglobin is stable so will resume Toradol. Anticipate removal of ANDREW drain tomorrow if drainage continues to diminish. Will advance diet very slowly, currently taking clear liquids without difficulty.
[2019-04-22 09:17] VITALS: BP 114/82; PULSE 84; RESP 16; TEMP 37; O2SAT 95
[2019-04-22] MEDS: Acetaminophen 500 MG Tablet 1000 MG PO ×2 (09:31→17:37)
[2019-04-22] MEDS: TELMISARTAN 40 MG TABLET PO (10:24)
--- NOTE | 2019-04-22 10:45 | CASEMGMT ---
RAJAN RODRIGUEZ Face to Face with patient for initial transition planning/care coordination assessment. RAJAN RODRIGUEZ introduced self and role at [facility]. Patient sitting in chair, alert and oriented, at bedside. Patient willing to participate in assessment and is able to answer all questions appropriately. Care providers, pharmacy, and demographics verified. Patient wishes to discharge home, denies need for home health at this time. Patient states she has no further needs or concerns at this time. CM to follow for discharge planning needs that may arise. PCP: Ronan Specialists: NAOMIE Shirley Preferred Pharmacy: [facility] Insurance: [facility] Prescription Benefit: none Living Will/HPOA: none LNOK: Living Arrangements: Patient lives with in 3 story home with bed and bath on first floor. Patient independent at home prior to surgery. Transportation: [employer] DME/HHC: Patient denies any DME in the home. RAJAN RODRIGUEZ provided [facility] DME warehouse information if needed in the future. Disposition Plan: Patient to discharge home with family support and follow-up plans in place. Dixie MELGAR, RN, CM
[2019-04-22 15:15] VITALS: BP 105/64; PULSE 70; RESP 16; TEMP 36.8; O2SAT 95
[2019-04-22] MEDS: Ketorolac 15 MG/ML Vial IV (17:38)
[2019-04-22] MEDS: 0.9% Saline Lock 10 ML Syringe IV (17:44)
[2019-04-22 20:45] VITALS: BP 102/46; PULSE 75; RESP 18; TEMP 36.4; O2SAT 94
[2019-04-23] MEDS: Ketorolac 15 MG/ML Vial IV ×3 (00:48→13:20)
[2019-04-23] MEDS: 0.9% Saline Lock 10 ML Syringe IV ×3 (00:51→13:20)
[2019-04-23 02:45] VITALS: BP 106/52; PULSE 81; RESP 18; TEMP 36.9; O2SAT 94
[2019-04-23 07:48] VITALS: O2SAT 92
--- NOTE | 2019-04-23 08:49 | PN.SURG_ITS ---
Patient Problems: Active and Suspected Problems (Last Updated 03/31/19 @ 08:42 by Isis Villatoro) Ventral hernia (Acute) Subjective: The patient reports she is still not passing any flatus. No nausea or vomiting. Tolerating clears. - Physical Exam Vitals/I&O's: Vital Signs Temp Pulse Resp BP Pulse Ox 98.4 F 81 18 106/52 L 94 04/23/19 02:45 04/23/19 02:45 04/23/19 02:45 04/23/19 02:45 04/23/19 02:45 Oxygen Flow Rate (L/min) 1 Oxygen Delivery Method Room Air Weight: 260 lb 12.909 oz Body Mass Index (BMI) 50.9 Intake and Output for Last 24 Hours 04/21/19 04/22/19 04/23/19 23:59 23:59 23:59 Intake Total 5270 / 5270 3747.5 / 3747.5 Output Total 380 / 785 1405 / 1720 635 / 635 Balance 4890 / 4485 2342.5 / 2027.5 -635 / -635 General: Alert, Oriented x3 Neck: No JVD Lungs: Normal air movement Abdomen: Soft, Non-Distended Current Medications Acetaminophen (Tylenol) 1,000 mg PO Q8H PRN PRN PRN Reason: Pain Score 1-3/10 or Fever Last Admin: 04/22/19 17:37 Dose: 1,000 mg Documented by: Docusate Sodium (Colace) 100 mg PO BID PRN PRN PRN Reason: Constipation Hydromorphone HCl (Dilaudid Inj) 0.5 - 1.5 mg IV Q3H PRN PRN PRN Reason: Pain Score 4-10/10 Dextrose/Lactated Ringer's () 1,000 mls @ 150 mls/hr IV .Q6H40M [facility] Last Admin: 04/23/19 07:33 Dose: Not Given Documented by: Ketorolac Tromethamine (Toradol) 15 mg IV Q6 [facility] Stop: 04/27/19 17:01 Last Admin: 04/23/19 06:16 Dose: 15 mg Documented by: Ondansetron HCl (Zofran) 4 mg IV Q4H PRN PRN PRN Reason: NAUSEA Oxycodone HCl (Oxyir) 5 - 10 mg PO Q4H PRN PRN PRN Reason: Pain Score 4-1010 Last Admin: 04/22/19 22:00 Dose: 10 mg Documented by: Simethicone (Mylicon) 80 mg PO [facility] Last Admin: 04/22/19 22:00 Dose: 80 mg Documented by: Sodium Chloride () 10 - 40 ml IV UD PRN PRN Reason: SALINE FLUSH Last Admin: 04/23/19 06:17 Dose: 10 ml Documented by: Telmisartan (Telmisartan) 40 mg PO DAILY [facility] Last Admin: 04/22/19 10:24 Dose: 40 mg Documented by: Medical Necessity - Tobacco Use Smoking Status: Never smoker Tobacco Use: Non-smoker Assessment/Plan All Active Problems (Last Updated 03/31/19 @ 08:42 by Isis Villatoro) Ventral hernia (Acute) History of (Acute) 58-year-old female status post ventral hernia repair and hysterectomy 1. The patient reports she still having some abdominal pain. She is not passing any flatus but she is tolerating clear liquids. I will let her a full but I do not want her having a regular diet until she is passing flatus. I encouraged her walking in the hallways and getting up to the chair. Her incision is clean dry and intact. There is no erythema. Dressings were changed. Salvador Connors MD Pager: [facility] [address] [place] [address] [address] [place] [address] Office:
--- NOTE | 2019-04-23 09:22 | PN.OBGYN_ITS ---
Patient Problems: Active and Suspected Problems (Last Updated 03/31/19 @ 08:42 by Isis Villatoro) Ventral hernia (Acute) Subjective: Patient without complaints. Pain well controlled. Denies flatus on full liquid diet. Voiding on own and walking in halls. Would like to go home. - Physical Exam Vitals/I&O's: Vital Signs Temp Pulse Resp BP Pulse Ox 98.4 F 81 18 106/52 L 92 04/23/19 02:45 04/23/19 02:45 04/23/19 02:45 04/23/19 02:45 04/23/19 07:48 Oxygen Flow Rate (L/min) 1 Oxygen Delivery Method Room Air Weight: 260 lb 12.909 oz Body Mass Index (BMI) 50.9 Intake and Output for Last 24 Hours 04/21/19 04/22/19 04/23/19 23:59 23:59 23:59 Intake Total 5270 / 5270 3747.5 / 3747.5 Output Total 380 / 785 1405 / 1720 635 / 635 Balance 4890 / 4485 2342.5 / 2027.5 -635 / -635 Comment: Good urine output and ANDREW drain draining less. Current Medications Acetaminophen (Tylenol) 1,000 mg PO Q8H PRN PRN PRN Reason: Pain Score 1-3/10 or Fever Last Admin: 04/22/19 17:37 Dose: 1,000 mg Documented by: Docusate Sodium (Colace) 100 mg PO BID PRN PRN PRN Reason: Constipation Hydromorphone HCl (Dilaudid Inj) 0.5 - 1.5 mg IV Q3H PRN PRN PRN Reason: Pain Score 4-10/10 Dextrose/Lactated Ringer's () 1,000 mls @ 150 mls/hr IV .Q6H40M [facility] Last Admin: 04/23/19 07:33 Dose: Not Given Documented by: Ketorolac Tromethamine (Toradol) 15 mg IV Q6 [facility] Stop: 04/27/19 17:01 Last Admin: 04/23/19 06:16 Dose: 15 mg Documented by: Ondansetron HCl (Zofran) 4 mg IV Q4H PRN PRN PRN Reason: NAUSEA Oxycodone HCl (Oxyir) 5 - 10 mg PO Q4H PRN PRN PRN Reason: Pain Score 4-1010 Last Admin: 04/22/19 22:00 Dose: 10 mg Documented by: Simethicone (Mylicon) 80 mg PO P[facility] Last Admin: 04/22/19 22:00 Dose: 80 mg Documented by: Sodium Chloride () 10 - 40 ml IV UD PRN PRN Reason: SALINE FLUSH Last Admin: 04/23/19 06:17 Dose: 10 ml Documented by: Telmisartan (Telmisartan) 40 mg PO DAILY [facility] Last Admin: 04/22/19 10:24 Dose: 40 mg Documented by: Medical Necessity - Tobacco Use Smoking Status: Never smoker Tobacco Use: Non-smoker Assessment/Plan All Active Problems (Last Updated 03/31/19 @ 08:42 by Isis Villatoro) Ventral hernia (Acute) History of (Acute) Doing well postoperative day #2 status post total abdominal hysterectomy, bilateral salpingo-nephrectomy, and ventral hernia repair. Continuing liquid diet until positive flatus given amount of bowel manipulation during surgery. Will repeat CBC and creatinine to confirm stable. Plan to discontinue ANDREW drain tomorrow if output continues to be low. Anticipate possible release tomorrow if bowel function returns and tolerating diet well.
[2019-04-23 09:44] LABS: Absolute Neutrophil Count 6.6 X10^3/uL (2.0-7.7); Basophil# 0.07 X10^3/uL; Basophil% 0.7 % (0-1); Eosinophil# 0.22 X10^3/uL; Eosinophils% 2.3 % (0-5); Hematocrit 28.8 % (37-47); Hemoglobin 9.2 g/dL (12.0-15.0); Lymphocyte % 19.8 % (19-41); Mean Corp Hgb Conc 31.9 g/dL (32-36); Mean Corpuscular Hgb 29.4 pg (27.0-32.0); Mean Platelet Vol. 9.8 fl (6.2-12.0); Monocyte# 0.76 X10^3/uL; Monocyte% 7.9 % (0-10); NRBC Flagged by Analyzer 0 % (0-5); Neutrophil # 6.57 X10^3/uL (2.7-7.7); Neutrophil % 68.3 % (47-70); Platelet Count 240 K/mm3 (150-450); RBC Distribution Width CV 13.7 % (11.6-14.6); RBC Distribution Width SD 46.1 fl (35.1-43.9); Red Blood Count 3.13 M/mm3 (4.2-5.4); White Blood Count 9.6 K/mm3 (4.4-11.0)
[2019-04-23 10:11] LABS: Creatinine, Serum 1.01 mg/dL (0.55-1.02); EST Glomerular Filtration Rate 60 mL/min (>60); Est Glom Filt Rate - Afr Amer 72 mL/min (>60); Estimated Creatinine Clearance 43.61 ml/min
[2019-04-23 10:16] VITALS: BP 131/73; PULSE 88; RESP 18; TEMP 36.5; O2SAT 95
[2019-04-23] MEDS: TELMISARTAN 40 MG TABLET PO (10:20)
[2019-04-23] MEDS: Bisacodyl 10 MG Suppository RECTAL (10:27)
[2019-04-23 15:09] VITALS: BP 118/61; PULSE 98; RESP 18; TEMP 36.8; O2SAT 100
[2019-04-23] MEDS: Ketorolac 10 MG Tablet PO (18:31)
[2019-04-23 20:51] VITALS: BP 130/67; PULSE 83; RESP 18; TEMP 37.6; O2SAT 93
[2019-04-23] MEDS: oxyCODONE 5 MG Tablet PO (22:45)
[2019-04-24] MEDS: Ketorolac 10 MG Tablet PO ×2 (00:55→06:06)
[2019-04-24 03:00] VITALS: BP 118/67; PULSE 74; RESP 18; TEMP 37.1; O2SAT 94
[2019-04-24 06:41] LABS: Absolute Lymphocyte Count 2.38 X10^3/uL (0.83-4.51); Absolute Neutrophil Count 5.4 X10^3/uL (2.0-7.7); Basophil# 0.05 X10^3/uL; Basophil% 0.6 % (0-1); Eosinophil# 0.43 X10^3/uL; Eosinophils% 4.8 % (0-5); Hematocrit 29.9 % (37-47); Hemoglobin 9.4 g/dL (12.0-15.0); Lymphocyte # 2.38 X10^3/ul (4.0); Lymphocyte % 26.7 % (19-41); Mean Corp Hgb Conc 31.4 g/dL (32-36); Mean Corpuscular Hgb 29.4 pg (27.0-32.0); Mean Corpuscular Volume 93.4 fL (81-99); Mean Platelet Vol. 9.8 fl (6.2-12.0); Monocyte# 0.54 X10^3/uL; Monocyte% 6.1 % (0-10); NRBC Flagged by Analyzer 0 % (0-5); Neutrophil # 5.39 X10^3/uL (2.7-7.7); Neutrophil % 60.3 % (47-70); Platelet Count 273 K/mm3 (150-450); RBC Distribution Width CV 13.1 % (11.6-14.6); RBC Distribution Width SD 44.9 fl (35.1-43.9); White Blood Count 8.9 K/mm3 (4.4-11.0)
[2019-04-24 06:55] VITALS: O2SAT 94
[2019-04-24 08:28] VITALS: BP 127/79; PULSE 73; RESP 18; TEMP 36.8; O2SAT 96
[2019-04-24 08:34] VITALS: O2SAT 96
--- NOTE | 2019-04-24 08:55 | PN.OBGYN_ITS ---
Patient Problems: Active and Suspected Problems (Last Updated 03/31/19 @ 08:42 by Isis Villatoro) Ventral hernia (Acute) Subjective: Patient states pain is well controlled on oral medication. No nausea with full liquid diet and tolerating well. She reports up walking and passing flatus with scant BM today. Wishes to go home. Objective: Doing well postoperative day #3 status post total abdominal hysterectomy, bilateral salpingo-nephrectomy, and ventral hernia repair. Tolerating full liquid diet, passing flatus with small BM this AM per patient report. Dressing CDI to abdominal incision. Labs stable, ANDREW output= 70ml over past 24 hours. Plan for ANDREW drain removal and possible discharge today after discussion with attending Dr. Shirley. - Physical Exam Vitals/I&O's: Vital Signs Temp Pulse Resp BP Pulse Ox 98.2 F 73 18 127/79 H 96 04/24/19 08:28 04/24/19 08:28 04/24/19 08:28 04/24/19 08:28 04/24/19 08:34 Oxygen Flow Rate (L/min) 1 Oxygen Delivery Method Room Air Weight: 118.3 kg Body Mass Index (BMI) 50.9 Intake and Output for Last 24 Hours 04/22/19 04/23/19 04/24/19 23:59 23:59 23:59 Intake Total 3747.5 / 3747.5 480 / 480 400 / 400 Output Total 1405 / 1720 1240 / 1290 675 / 675 Balance 2342.5 / 2027.5 -760 / -810 -275 / -275 General: Alert, Oriented x3, Cooperative HEENT: Atraumatic, PERRLA, EOMI, Normocephalic Oral: Moist Mucosa Neck: Supple, No JVD, Trachea Midline Lungs: Clear to auscultation, Normal air movement Cardiovascular: Regular rate, No murmurs Abdomen: Bowel Sounds Present, Soft, Passing Flatus, Tender - incisional pain Extremities: No edema, Capillary Refill Less than 3 Seconds Skin: No rashes, Incision - abdominal surgical site- dressing CDI Musculoskeletal: No Tenderness to Palpation of Joints or Extremities Neurological: Cranial nerves II-XII grossly intact Psych/Mental Status: Normal Affect, Appropriate Laboratory Results 04/23/19 09:35: WBC 9.6, RBC 3.13 L, Hgb 9.2 L, Hct 28.8 L, MCV 92.0, MCH 29.4, MCHC 31.9 L, RDW Std Deviation 46.1 H, RDW Coeff of Robert 13.7, Plt Count 240, MPV 9.8, Immature Gran % (Auto) 1.000 H, Neut % (Auto) 68.3, Lymph % (Auto) 19.8, [place] % (Auto) 7.9, Eos % (Auto) 2.3, Baso % (Auto) 0.7, Absolute Neuts (auto) 6.6, Absolute Lymphs (auto) 1.90, Nucleated RBC % 0 04/23/19 09:35: Creatinine 1.01, Estim Creat Clear Calc 43.61, Est GFR (MDRD) Af Amer 72, Est GFR (MDRD) Non-Af 60 04/24/19 06:25: WBC 8.9, RBC 3.20 L, Hgb 9.4 L, Hct 29.9 L, MCV 93.4, MCH 29.4, MCHC 31.4 L, RDW Std Deviation 44.9 H, RDW Coeff of Robert 13.1, Plt Count 273, MPV 9.8, Immature Gran % (Auto) 1.500 H, Neut % (Auto) 60.3, Lymph % (Auto) 26.7, [place] % (Auto) 6.1, Eos % (Auto) 4.8, Baso % (Auto) 0.6, Absolute Neuts (auto) 5.4, Absolute Lymphs (auto) 2.38, Nucleated RBC % 0 Current Medications Acetaminophen (Tylenol) 1,000 mg PO Q8H PRN PRN PRN Reason: Pain Score 1-3/10 or Fever Last Admin: 04/22/19 17:37 Dose: 1,000 mg Documented by: Bisacodyl (Dulcolax) 10 mg RECTAL BID [facility] Last Admin: 04/23/19 22:46 Dose: Not Given Documented by: Docusate Sodium (Colace) 100 mg PO BID PRN PRN PRN Reason: Constipation Hydromorphone HCl (Dilaudid Inj) 0.5 - 1.5 mg IV Q3H PRN PRN PRN Reason: Pain Score 4-10/10 Dextrose/Lactated Ringer's () 1,000 mls @ 150 mls/hr IV .Q6H40M [facility] Last Admin: 04/24/19 07:44 Dose: Not Given Documented by: Ketorolac Tromethamine (Toradol) 10 mg PO Q6 [facility] Stop: 04/28/19 17:47 Last Admin: 04/24/19 06:06 Dose: 10 mg Documented by: Ondansetron HCl (Zofran) 4 mg IV Q4H PRN PRN PRN Reason: NAUSEA Oxycodone HCl (Oxyir) 5 - 10 mg PO Q4H PRN PRN PRN Reason: Pain Score 4-10/10 Last Admin: 04/23/19 22:45 Dose: 10 mg Documented by: Simethicone (Mylicon) 80 mg PO [facility] Last Admin: 04/23/19 22:45 Dose: 80 mg Documented by: Sodium Chloride () 10 - 40 ml IV UD PRN PRN Reason: SALINE FLUSH Last Admin: 04/23/19 13:20 Dose: 10 ml Documented by: Telmisartan (Telmisartan) 40 mg PO DAILY [facility] Last Admin: 04/23/19 10:20 Dose: 40 mg Documented by: Medical Necessity - Tobacco Use Smoking Status: Never smoker Tobacco Use: Non-smoker Assessment/Plan All Active Problems (Last Updated 03/31/19 @ 08:42 by Isis Villatoro) Ventral hernia (Acute) History of (Acute)
--- NOTE | 2019-04-24 09:41 | PCM.DC.BLA ---
Discharge Summary Date of Admission: 04/21/19 Date of Discharge: 04/24/19 Summary: Admission diagnosis: Large Uterine Fibroids, Menorrhagia, Large Ventral Hernia Discharge diagnosis: Large Uterine Fibroids, Menorrhagia, Large Ventral Hernia, Blood Loss Anemia Procedure: Total Abdominal Hysterectomy, Bilateral Salpingo-Oophorectomy, Ventral Hernia Repair With Prolene Suture HPI: This is a 58-year-old patient who began having extremely heavy bleeding about a month ago. CT scan suggested that she had a fibroid but it was uncertain. Ultrasound was also uncertain as to the diagnosis. Given this a D&C was performed which showed likely submucous fibroid in the uterus which was large. Endometrial curettings were benign and it was decided to proceed with total abdominal hysterectomy due to the patient's heavy bleeding. She also had a large ventral hernia for which she saw general surgery and repair was planned at the time of her hysterectomy. PE: Unremarkable except the patient is morbidly obese and has an extremely large ventral hernia. Hospital Course: The patient is a 58 year old patient who presented for the above surgery. There were no complications of the surgery although she did have approximately 1800 cc blood loss during the surgery for which 2 units of packed red blood cells was given during the surgery. Postoperatively she did well demonstrating a stable HGB by POD 3 of approximately 9.4 and bowel fxn by POD 3 at which time it was felt she was ready for discharge. ANDREW drain drainage was also only approximately 70 cc/day and was discontinued and on postoperative day #3. Homegoing Instruction: She was instructed not to drive for several days, not to put anything in the vagina for 6 weeks, not to lift heavier than 10 pounds for at least 6 weeks, and the call the office for an appointment in 2 weeks in 6 weeks. She is also to follow-up with general surgery in approximately 2 weeks for skin clip removal. She was also instructed to call with a fever greater than 101 ?F, inability to have a bowel movement, or increasing pain. Discharge Medications: She was given a prescription for Oxycodone and Colace and also plans to use Aleve or Motrin or Tylenol at home as needed for pain and constipation. She was also instructed to use iron supplementation during the next 4 to 6 weeks. Surgical Pathology: Benign findings were noted with a uterus weighing approximately 1100 g. Patient Problems: Active and Suspected Problems (Last Updated 03/31/19 @ 08:42 by Isis Villatoro) Ventral hernia (Acute) - Physical Exam Vitals/I&O's: Vital Signs Temp Pulse Resp BP Pulse Ox 98.2 F 73 18 127/79 H 96 04/24/19 08:28 04/24/19 08:28 04/24/19 08:28 04/24/19 08:28 04/24/19 08:34 Oxygen Flow Rate (L/min) 1 Oxygen Delivery Method Room Air Weight: 260 lb 12.909 oz Body Mass Index (BMI) 50.9 Intake and Output for Last 24 Hours 04/22/19 04/23/19 04/24/19 23:59 23:59 23:59 Intake Total 3747.5 / 3747.5 480 / 480 400 / 400 Output Total 1405 / 1720 1240 / 1290 675 / 675 Balance 2342.5 / 2027.5 -760 / -810 -275 / -275 Laboratory Results 04/23/19 09:35: WBC 9.6, RBC 3.13 L, Hgb 9.2 L, Hct 28.8 L, MCV 92.0, MCH 29.4, MCHC 31.9 L, RDW Std Deviation 46.1 H, RDW Coeff of Robert 13.7, Plt Count 240, MPV 9.8, Immature Gran % (Auto) 1.000 H, Neut % (Auto) 68.3, Lymph % (Auto) 19.8, [place] % (Auto) 7.9, Eos % (Auto) 2.3, Baso % (Auto) 0.7, Absolute Neuts (auto) 6.6, Absolute Lymphs (auto) 1.90, Nucleated RBC % 0 04/23/19 09:35: Creatinine 1.01, Estim Creat Clear Calc 43.61, Est GFR (MDRD) Af Amer 72, Est GFR (MDRD) Non-Af 60 04/24/19 06:25: WBC 8.9, RBC 3.20 L, Hgb 9.4 L, Hct 29.9 L, MCV 93.4, MCH 29.4, MCHC 31.4 L, RDW Std Deviation 44.9 H, RDW Coeff of Robert 13.1, Plt Count 273, MPV 9.8, Immature Gran % (Auto) 1.500 H, Neut % (Auto) 60.3, Lymph % (Auto) 26.7, [place] % (Auto) 6.1, Eos % (Auto) 4.8, Baso % (Auto) 0.6, Absolute Neuts (auto) 5.4, Absolute Lymphs (auto) 2.38, Nucleated RBC % 0 Current Medications Acetaminophen (Tylenol) 1,000 mg PO Q8H PRN PRN PRN Reason: Pain Score 1-3/10 or Fever Last Admin: 04/22/19 17:37 Dose: 1,000 mg Documented by: Bisacodyl (Dulcolax) 10 mg RECTAL BID [facility] Last Admin: 04/23/19 22:46 Dose: Not Given Documented by: Docusate Sodium (Colace) 100 mg PO BID PRN PRN PRN Reason: Constipation Hydromorphone HCl (Dilaudid Inj) 0.5 - 1.5 mg IV Q3H PRN PRN PRN Reason: Pain Score 4-10/10 Dextrose/Lactated Ringer's () 1,000 mls @ 150 mls/hr IV .Q6H40M [facility] Last Admin: 04/24/19 07:44 Dose: Not Given Documented by: Ketorolac Tromethamine (Toradol) 10 mg PO Q6 [facility] Stop: 04/28/19 17:47 Last Admin: 04/24/19 06:06 Dose: 10 mg Documented by: Ondansetron HCl (Zofran) 4 mg IV Q4H PRN PRN PRN Reason: NAUSEA Oxycodone HCl (Oxyir) 5 - 10 mg PO Q4H PRN PRN PRN Reason: Pain Score 4-10/10 Last Admin: 04/23/19 22:45 Dose: 10 mg Documented by: Simethicone (Mylicon) 80 mg PO [facility] Last Admin: 04/23/19 22:45 Dose: 80 mg Documented by: Sodium Chloride () 10 - 40 ml IV UD PRN PRN Reason: SALINE FLUSH Last Admin: 04/23/19 13:20 Dose: 10 ml Documented by: Telmisartan (Telmisartan) 40 mg PO DAILY [facility] Last Admin: 04/23/19 10:20 Dose: 40 mg Documented by:
--- NOTE | 2019-04-24 10:05 | PCM.PN.SRG ---
Patient Problems: Active and Suspected Problems (Last Updated 03/31/19 @ 08:42 by Isis Villatoro) Ventral hernia (Acute) Subjective: Patient evaluated resting comfortably in bed. She notes incisional discomfort with movement. She notes positive flatus. She is tolerating full liquids. Denies nausea, vomiting. - Physical Exam Vitals/I&O's: Vital Signs Temp Pulse Resp BP Pulse Ox 98.2 F 73 18 127/79 H 96 04/24/19 08:28 04/24/19 08:28 04/24/19 08:28 04/24/19 08:28 04/24/19 08:34 Oxygen Flow Rate (L/min) 1 Oxygen Delivery Method Room Air Weight: 260 lb 12.909 oz Body Mass Index (BMI) 50.9 Intake and Output for Last 24 Hours 04/22/19 04/23/19 04/24/19 23:59 23:59 23:59 Intake Total 3747.5 / 3747.5 480 / 480 400 / 400 Output Total 1405 / 1720 1240 / 1290 675 / 675 Balance 2342.5 / 2027.5 -760 / -810 -275 / -275 General: Alert, Oriented x3, Cooperative Abdomen: Soft, Obese, Tender - generalized, - - Incision c/i. Minimal amount of drainage noted on ABD dressing. Dressing was changed. [place] intact. Laboratory Results 04/23/19 09:35: Creatinine 1.01, Estim Creat Clear Calc 43.61, Est GFR (MDRD) Af Amer 72, Est GFR (MDRD) Non-Af 60 04/24/19 06:25: WBC 8.9, RBC 3.20 L, Hgb 9.4 L, Hct 29.9 L, MCV 93.4, MCH 29.4, MCHC 31.4 L, RDW Std Deviation 44.9 H, RDW Coeff of Robert 13.1, Plt Count 273, MPV 9.8, Immature Gran % (Auto) 1.500 H, Neut % (Auto) 60.3, Lymph % (Auto) 26.7, [place] % (Auto) 6.1, Eos % (Auto) 4.8, Baso % (Auto) 0.6, Absolute Neuts (auto) 5.4, Absolute Lymphs (auto) 2.38, Nucleated RBC % 0 Current Medications Acetaminophen (Tylenol) 1,000 mg PO Q8H PRN PRN PRN Reason: Pain Score 1-3/10 or Fever Last Admin: 04/22/19 17:37 Dose: 1,000 mg Documented by: Bisacodyl (Dulcolax) 10 mg RECTAL BID [facility] Last Admin: 04/23/19 22:46 Dose: Not Given Documented by: Docusate Sodium (Colace) 100 mg PO BID PRN PRN PRN Reason: Constipation Hydromorphone HCl (Dilaudid Inj) 0.5 - 1.5 mg IV Q3H PRN PRN PRN Reason: Pain Score 4-10/10 Dextrose/Lactated Ringer's () 1,000 mls @ 150 mls/hr IV .Q6H40M [facility] Last Admin: 04/24/19 07:44 Dose: Not Given Documented by: Ketorolac Tromethamine (Toradol) 10 mg PO Q6 [facility] Stop: 04/28/19 17:47 Last Admin: 04/24/19 06:06 Dose: 10 mg Documented by: Ondansetron HCl (Zofran) 4 mg IV Q4H PRN PRN PRN Reason: NAUSEA Oxycodone HCl (Oxyir) 5 - 10 mg PO Q4H PRN PRN PRN Reason: Pain Score 4-10/10 Last Admin: 04/23/19 22:45 Dose: 10 mg Documented by: Simethicone (Mylicon) 80 mg PO [facility] Last Admin: 04/23/19 22:45 Dose: 80 mg Documented by: Sodium Chloride () 10 - 40 ml IV UD PRN PRN Reason: SALINE FLUSH Last Admin: 04/23/19 13:20 Dose: 10 ml Documented by: Telmisartan (Telmisartan) 40 mg PO DAILY [facility] Last Admin: 04/23/19 10:20 Dose: 40 mg Documented by: Medical Necessity - Tobacco Use Smoking Status: Never smoker Tobacco Use: Non-smoker Assessment/Plan All Active Problems (Last Updated 03/31/19 @ 08:42 by Isis Villatoro) Ventral hernia (Acute) History of (Acute) I am following this patient in conjunction with Dr. Connors S/p ventral incisional hernia repair with sutures in conjunction with FRANKY hysterectomy Ready for discharge Follow-up in 2 weeks Code Visit Inpatient E&M: 08112 Subs Hosp L1 - No charge
[2019-04-24] MEDS: TELMISARTAN 40 MG TABLET PO (10:23)
--- NOTE | 2019-04-24 10:47 | DCINST_ITS ---
Discharge Diet: No Restrictions Discharge Activity: Return to Normal Activity - do what you feel comfortable, but do not over do it. You may climb stairs, just use caution and hold the railing., May Not Drive - for a few days or while taking narcotic pain medications., May Shower, May Take a Tub Bath May resume sexual activity in: 6 weeks - nothing in the vagina. Lifting Restrictions: 10 pounds for 6 weeks. Call your doctor if your incision/area has: Continuous Slow Oozing, Sudden Increased Bleeding, Increased Pain/ Swelling, Increased Redness, Foul Smelling Discharge Call your doctor if you observe: Fever of 101 or Higher, Inability to urinate, Inability to have a bowel movement, Using more than one pad per hour, - - Some vaginal bleeding may be noted for up to 4-8 weeks. Cleanse incision/area with: - - Let the soapy water run over your incision, rinse and pat dry. Additional Dressing/Incision Instructions:: The white strips (Steri Strips) on your incision will fall off on their own. Allergies/Adverse Reactions: Allergies No Known Allergies Allergy (Verified 04/21/19 09:12) Medications to take at Discharge Telmisartan [Micardis] 40 mg PO DAILY 02/27/19 Docusate Sodium [Colace] 100 mg PO BID PRN PRN #60 cap 04/21/19 Oxycodone [Oxyir] 5 mg PO Q6H PRN PRN 7 Days #20 tab 04/21/19 The following prescriptions were given: Docusate Sodium [Colace] 100 mg PO BID PRN PRN #60 cap PRN Reason: Constipation Prescription Printed Oxycodone [Oxyir] 5 mg PO Q6H PRN PRN 7 Days #20 tab PRN Reason: Pain Score 6-10/10 Prescription Printed Orders to be completed after discharge: 12 Lead EKG [[facility]] Time Frame: 04/15/19, Facility: [facility], Location: Cardiovascular Services Primary Care Physician: Ignacio Ferraro DO [Primary Care Provider] - Test Results: Test results from this visit will be discussed in further detail at your follow- up appointment, if applicable. Please Follow Up With: Renato Shirley MD - [phone] When: in 2 weeks, please call to make an appointment. Please Follow Up With: Salvador Connors MD When: in 2 weeks, please call to make an appointment.
== END 2019-04-24 11:50 | disposition home or self-care (01) | DRG 742 ==
LOC: ACINP 08:19 → MS3 11:12
PROVIDERS: Surgery; Admitting Provider Obstetrics & Gynecology; Family Provider Family Medicine; PCP Family Medicine; Referring Provider Obstetrics & Gynecology; Visit Provider Obstetrics & Gynecology
PROC: 0UT90ZZ Resection of Uterus, Open Approach (ICD-10-PCS; CPT 58150; principal; 2019-04-21 10:10)
PROC: 0WQF0ZZ Repair Abdominal Wall, Open Approach (ICD-10-PCS; 2019-04-21 10:10)
DX: D25.9 Leiomyoma of uterus, unspecified (principal); K42.0 Umbilical hernia with obstruction, without gangrene; Z68.43 Body mass index [BMI] 50.0-59.9, adult; D62 Acute posthemorrhagic anemia; N95.0 Postmenopausal bleeding; N70.11 Chronic salpingitis; E66.01 Morbid (severe) obesity due to excess calories
CPT/HCPCS: 36415; 82565; 85018; 85025; 85027; 85610; 85730; 86850; 86900; 86901; 86920; 88302; 88304; 88307; 93005; J7120; P9016; A4216; J2405; J3475